=== PATIENT | female | born 1950 | race Caucasian/White ===

== ENCOUNTER 2017-04-22 08:44 | Emergency (ER) | payer MEDICARE, BC ==
[~2017-04-22] VITALS: Ht 160 cm; Wt 90.9 kg
[~2017-04-22 08:44] MED LIST: ACTONEL150 MG PO; ASPRIN; CALCIUM 600600 M2 PO; FELODIPINE10 MG PO; MULTIPLE VITAMI1 CAP PO; NORCO 325 MG-51 TAB PO; ZOCOR 80MG80 MG PO
[2017-04-22 08:46] VITALS: TEMP 97.5
[2017-04-22 10:07] LABS: BASO % 0.8 % (0.0-2.0); EOS # 0.1 (0.0-0.7); EOS % 1.8 % (0-4.0); GRAN # 2.4 (1.4-6.5); HEMATOCRIT 38.8 % (37.0-47.0); HEMOGLOBIN 12.9 g/dl (12.5-16.0); LYMPH # 2.1 (1.2-3.4); LYMPH % 43.1 % (20.0-51.0); MEAN CELL VOLUME 92 fl (80.0-100.0); MEAN CORPUSCULAR HEMOGLOBIN 30 pg (27.0-31.0); MEAN CORPUSCULAR HGB CONC 33 g/dl (33.0-37.0); MEAN PLATELET VOLUME 10.3 fl (7.4-10.4); MONO # 0.3 (0.1-0.6); MONO % 5.9 % (1.7-9.3); PLATELET COUNT 238 K/mm3 (130-400); RED BLOOD COUNT 4.24 M/mm3 (4.10-5.30); REDCELL DISTRIBUTION WIDTH-CV 13.2 % (11.5-14.5); WHITE BLOOD COUNT 4.9 K/mm3 (4.8-10.8)
[2017-04-22 10:15] LABS: PROTHROMBIN TIME 11.6 SECONDS (9.7-12.8)
[2017-04-22 10:18] LABS: PARTIAL THROMBOPLASTIN TIME 30.6 SECONDS (26.0-37.0)
[2017-04-22] MEDS ORDERED: FLONASE NASAL S16 GM NS (10:22)
[2017-04-22] MEDS ORDERED: LOPRESSOR 550 MG/TAB PO (10:23)
[2017-04-22] MEDS ORDERED: ASPIRIN E.C. 8181 MG PO (10:23)
[2017-04-22 10:30] VITALS: BP 129/67; PULSE 67
== END 2017-04-22 11:15 | disposition home or self-care (01) ==
LOC: COL.ER 08:44
PROVIDERS: Emergency Medicine
DX: R04.0 Epistaxis (principal); I10 Essential (primary) hypertension

== ENCOUNTER → 2018-10-24 | Outpatient (REF) ==
[~2018-10-24] MED LIST changes: +ASPIRIN E.C. 8181 MG PO; +FLONASE NASAL S16 GM NS; +LOPRESSOR 550 MG/TAB PO
== END ==
LOC: ZLAB.WCH 18:27
DX: Z01.89 Encounter for other specified special examinations (principal)